=== PATIENT | male | born 1975 | race Caucasian/White ===

== ENCOUNTER 2018-08-08 01:49 | Emergency (ER) | payer OTHER ==
[~2018-08-08] VITALS: Ht 180.3 cm; Wt 106.6 kg
[~2018-08-08 01:49] MED LIST: WARF3 PO
[2018-08-08] MEDS ORDERED: CYCL10 PO (05:33)
== END 2018-08-08 05:32 | disposition home or self-care (01) ==
LOC: ER 01:49
DX: M25.512 Pain in left shoulder (principal); Z88.5 Allergy status to narcotic agent; Z79.01 Long term (current) use of anticoagulants; F17.210 Nicotine dependence, cigarettes, uncomplicated
CPT/HCPCS: 73030; 96372; 99283-25; J1885

== ENCOUNTER 2019-02-09 19:34 | Emergency (ER) | payer OTHER ==
[~2019-02-09] VITALS: Ht 177.8 cm; Wt 102.1 kg
[~2019-02-09 19:34] MED LIST changes: +CYCL10 PO
[2019-02-09] MEDS ORDERED: Cleocin HCl300 MG PO (21:01)
== END 2019-02-09 21:07 | disposition home or self-care (01) ==
LOC: ER 19:34
DX: K04.7 Periapical abscess without sinus (principal); F17.200 Nicotine dependence, unspecified, uncomplicated; Z95.2 Presence of prosthetic heart valve; Z88.5 Allergy status to narcotic agent; Z79.01 Long term (current) use of anticoagulants
CPT/HCPCS: 99283

== ENCOUNTER → 2019-02-11 | Outpatient (CLI) | payer OTHER ==
[~2019-02-11] MED LIST changes: +Cleocin HCl300 MG PO
[2019-02-11 09:01] LABS: BASOPHILS ABSOLUTE AUTO 0.06 K/mm3 (0.00-0.23); BASOPHILS PERCENT AUTO 0 % (0-2); EOSINOPHILS ABSOLUTE AUTO 0.21 K/mm3 (0.00-0.68); EOSINOPHILS PERCENT AUTO 1 % (0-6); Hemoglobin 15.2 g/dL (13.5-17.5); IMMATURE GRAN ABSOLUTE AUTO 0.05 K/mm3 (0.00-0.10); IMMATURE GRAN PERCENT AUTO 0 % (0-1); LYMPHOCYTES ABSOLUTE AUTO 1.52 K/mm3 (0.84-5.20); LYMPHOCYTES PERCENT AUTO 10 % (21-46); MONOCYTES ABSOLUTE AUTO 1.27 K/mm3 (0.16-1.47); MONOCYTES PERCENT AUTO 8 % (4-13); Mean Corpuscular HGB 28.6 pg (26.0-34.0); Mean Corpuscular Volume 87 fL (80-100); Mean Platelet Volume 9.3 fL (9.1-12.4); NEUTROPHILS PERCENT AUTO 79 % (41-73); Platelet Count 372 K/mm3 (150-400); RDW Standard Deviation 43.9 fL (35.1-46.3); Red Blood Cell Count 5.32 M/mm3 (4.30-5.90); White Blood Cell Count 15.11 K/mm3 (4.00-11.30)
[2019-02-11 09:38] LABS: Alanine Aminotransfer (ALT/SGP 41 U/L (12-78); Albumin, Blood 3.9 g/dL (3.4-5.0); Albumin/Globulin Ratio 0.9 (0.8-1.8); Alk Phos 76 U/L (50-136); Anion Gap 6 mmol/L (6-16); Aspartate Aminotrans (AST/SGOT 27 U/L (12-37); Bilirubin, Total 0.5 mg/dL (0.1-1.0); Blood Urea Nitrogen 10 mg/dL (8-24); CO2, Blood 26 mmol/L (21-32); Calcium, Blood 8.8 mg/dL (8.5-10.1); Chloride, Blood 109 mmol/L (98-108); Creatinine, Blood 0.91 mg/dL (0.60-1.20); Globulin, Blood 4.3 g/dL (2.2-4.0); Glomerular Filtration Rate >60 (60-); Glucose, Blood 90 mg/dL (70-99); Potassium, Blood 3.5 mmol/L (3.5-5.5); Sodium, Blood 141 mmol/L (136-145); Total Protein, Blood 8.2 g/dL (6.4-8.2)
[2019-02-11 09:40] LABS: International Normalized Ratio 2.42; Prothrombin Time Results 23.7 Sec (9.7-11.5)
== END | disposition home or self-care (01) ==
LOC: LAB SHORT 08:56 → LAB EV 08:56
PROVIDERS: Physician Assistant Medical
DX: Z79.01 Long term (current) use of anticoagulants (principal); Z51.81 Encounter for therapeutic drug level monitoring; K13.79 Other lesions of oral mucosa
CPT/HCPCS: 80053; 85025; 85610; 85730

== ENCOUNTER → 2019-05-15 | Outpatient (CLI) | payer OTHER ==
[2019-05-15 09:23] LABS: BASOPHILS ABSOLUTE AUTO 0.04 K/mm3 (0.00-0.23); BASOPHILS PERCENT AUTO 1 % (0-2); EOSINOPHILS ABSOLUTE AUTO 0.53 K/mm3 (0.00-0.68); EOSINOPHILS PERCENT AUTO 8 % (0-6); Hematocrit 44.6 % (37.0-53.0); Hemoglobin 14.7 g/dL (13.5-17.5); IMMATURE GRAN ABSOLUTE AUTO 0.03 K/mm3 (0.00-0.10); IMMATURE GRAN PERCENT AUTO 1 % (0-1); LYMPHOCYTES ABSOLUTE AUTO 0.85 K/mm3 (0.84-5.20); LYMPHOCYTES PERCENT AUTO 13 % (21-46); MONOCYTES ABSOLUTE AUTO 0.96 K/mm3 (0.16-1.47); MONOCYTES PERCENT AUTO 15 % (4-13); Mean Corpuscular HGB 28.3 pg (26.0-34.0); Mean Corpuscular Volume 86 fL (80-100); Mean Platelet Volume 9.2 fL (9.1-12.4); NEUTROPHILS ABSOLUTE AUTO 4.04 K/mm3 (1.96-9.15); NEUTROPHILS PERCENT AUTO 63 % (41-73); Platelet Count 241 K/mm3 (150-400); RDW Coefficient Variation 14.6 % (11.7-14.2); RDW Standard Deviation 46.2 fL (35.1-46.3); Red Blood Cell Count 5.19 M/mm3 (4.30-5.90); White Blood Cell Count 6.45 K/mm3 (4.00-11.30)
[2019-05-15 09:32] LABS: Alanine Aminotransfer (ALT/SGP 29 U/L (12-78); Albumin, Blood 3.5 g/dL (3.4-5.0); Albumin/Globulin Ratio 0.9 (0.8-1.8); Alk Phos 52 U/L (40-126); Anion Gap 10 mmol/L (6-16); Aspartate Aminotrans (AST/SGOT 24 U/L (12-37); Bilirubin, Total 0.2 mg/dL (0.1-1.0); Blood Urea Nitrogen 12 mg/dL (8-24); Bun/Creatinine Ratio 11.7 (12.0-20.0); CO2, Blood 25 mmol/L (21-32); Calcium, Blood 8.2 mg/dL (8.5-10.1); Chloride, Blood 106 mmol/L (98-108); Creatinine, Blood 1.03 mg/dL (0.60-1.20); Globulin, Blood 3.9 g/dL (2.2-4.0); Glomerular Filtration Rate >60 (60-); Glucose, Blood 90 mg/dL (70-99); Potassium, Blood 3.9 mmol/L (3.5-5.5); Sodium, Blood 141 mmol/L (136-145); Total Protein, Blood 7.4 g/dL (6.4-8.2)
[2019-05-15 10:17] LABS: International Normalized Ratio 1.68; Prothrombin Time Results 17.5 Sec (9.7-11.5)
== END ==
LOC: LAB EV 09:16 → LAB SHORT 09:16
PROVIDERS: Physician Assistant
DX: Z79.01 Long term (current) use of anticoagulants (principal); Z51.81 Encounter for therapeutic drug level monitoring; R50.9 Fever, unspecified
CPT/HCPCS: 80053; 85025; 85610; 85730

== ENCOUNTER 2019-07-06 14:50 | Inpatient (IN) | payer OTHER ==
[~2019-07-06] VITALS: Ht 177.8 cm; Wt 94.8 kg
[2019-07-06 15:37] LABS: BASOPHILS PERCENT AUTO 1 % (0-2); EOSINOPHILS ABSOLUTE AUTO 0.13 K/mm3 (0.00-0.68); EOSINOPHILS PERCENT AUTO 1 % (0-6); Hemoglobin 12.3 g/dL (13.5-17.5); IMMATURE GRAN ABSOLUTE AUTO 0.13 K/mm3 (0.00-0.10); IMMATURE GRAN PERCENT AUTO 1 % (0-1); LYMPHOCYTES ABSOLUTE AUTO 2.88 K/mm3 (0.84-5.20); LYMPHOCYTES PERCENT AUTO 15 % (21-46); MONOCYTES ABSOLUTE AUTO 1.17 K/mm3 (0.16-1.47); MONOCYTES PERCENT AUTO 6 % (4-13); Mean Corpuscular HGB 28.1 pg (26.0-34.0); Mean Corpuscular HGB Conc 31.5 g/dL (31.5-36.5); Mean Corpuscular Volume 89 fL (80-100); Mean Platelet Volume 9.2 fL (9.1-12.4); NEUTROPHILS ABSOLUTE AUTO 15.11 K/mm3 (1.96-9.15); NEUTROPHILS PERCENT AUTO 77 % (41-73); Platelet Count 381 K/mm3 (150-400); RDW Standard Deviation 45.5 fL (35.1-46.3); Red Blood Cell Count 4.37 M/mm3 (4.30-5.90); White Blood Cell Count 19.52 K/mm3 (4.00-11.30)
[2019-07-06 15:54] LABS: Alanine Aminotransfer (ALT/SGP 28 U/L (12-78); Albumin, Blood 3.5 g/dL (3.4-5.0); Albumin/Globulin Ratio 1.1 (0.8-1.8); Alk Phos 46 U/L (50-136); Anion Gap 8 mmol/L (6-16); Aspartate Aminotrans (AST/SGOT 16 U/L (12-37); Bilirubin, Total 0.6 mg/dL (0.1-1.0); Blood Urea Nitrogen 42 mg/dL (8-24); Bun/Creatinine Ratio 35.6 (12.0-20.0); CO2, Blood 24 mmol/L (21-32); Chloride, Blood 111 mmol/L (98-108); Creatinine, Blood 1.18 mg/dL (0.60-1.20); Globulin, Blood 3.3 g/dL (2.2-4.0); Glomerular Filtration Rate >60 (60-); Glucose, Blood 151 mg/dL (70-99); Potassium, Blood 4.3 mmol/L (3.5-5.5); Sodium, Blood 143 mmol/L (136-145); Total Protein, Blood 6.8 g/dL (6.4-8.2)
[2019-07-06 16:02] LABS: International Normalized Ratio 2.29; Prothrombin Time Results 23.4 Sec (9.7-11.5)
[2019-07-06 16:53] LABS: Hemoglobin 10.6 g/dL (13.5-17.5)
--- NOTE | 2019-07-06 18:21 | NUR ---
ICU SUMMARY Plan of care discussed with Dr Frias prior to pt arrival to unit. Provider states no transfusion of PRBCs at this time. Would like existing units on standby. Assumed care of pt upon arrival to ICU 11 at 1735. Report received from Vanessa ROSA. Pt arrived to unit accompanied by Vanessa ROSA. Pt A&O x 4. Denies lightheadedness, dizziness, or shortness of breath. Pt states he is overall feeling well, much better than he did on arrival to the hospital. Pt transfers from ED gurney to ICU bed with minimal assistance. Pt on room air. SpO2 90% or greater. SR per monitor, rate 80s-90s. BP stable FFP infusing. Denies s/sx of transfusion reaction. Pt reports his only home medication is coumadin, which he takes for mechanical aortic valve. States he smokes approx 1 pack of cigarettes per day, exposed to second-hand smoke. Pt states he drinks "like a shot a month" of alcohol. Pt denies drug use. Pt lives with his Germania. States their 21 year anniversary is tomorrow. Pt states he has been having nausea and vomiting. Reports "[place] almost black" stools. When asked if they were tarry in appearance, pt states "no". Pt states stool has been solid. Per report from emergency department, pt had 400 mL of bloody emesis. NS and protonix infusing per orders. Dr Martin in room at this time.
--- NOTE | 2019-07-06 18:35 | NUR ---
UPDATE Dr Martin states plan to scope patient tonight.
--- NOTE | 2019-07-06 19:24 | NUR ---
PATIENT RESTING IN BED. NO COMPLAINTS OF PAIN OR NAUSEA. ABLE TO SIT AT SIDE OF BED TO ATTEMPT TO URINATE VOIDING SMALL AMT OF BIANCA URINE. SCOPE CREW IN ROOM FOR UPPER GI WITH DOCTOR CACERES.
--- NOTE | 2019-07-06 20:04 | NUR ---
07/06/192003 Grant Ibrahim Bite Block PlacedPATIENT DETERMINED TO BE ASA APPROPRIATE FOR PROPOFOL SEDATION PRIOR TO START OF PROCEDURE BY .History, Chart, Medications and Allergies reviewed before start of procedure. PROCEDURE IN ICU 11 O2 VIA N/C INTACT THROUGHOUT SEDATION/PROCEDURE. MONITOR INTACT WITH CONTINUOUS PULSE OXIMETRY AND INTERMITTENT BP. NON REBREATHER USED.
--- NOTE | 2019-07-06 20:28 | NUR ---
UPPER ENDO COMPLETE. AWAKENS TO SLIGHT STIMULI, FALLING BACK TO SLEEP EASILY. 95% ON RA. OK FOR SIPS OF WATER AND ICE CHIPS ONLY DUE TO CLIP PLACEMENT, PER DOCTOR NICKI.
[2019-07-06 23:13] LABS: Hematocrit 25.6 % (37.0-53.0); Hemoglobin 8.3 g/dL (13.5-17.5)
[2019-07-07 04:57] LABS: Hematocrit 24.8 % (37.0-53.0); Hemoglobin 7.9 g/dL (13.5-17.5)
[2019-07-07 05:14] LABS: Anion Gap 4 mmol/L (6-16); Blood Urea Nitrogen 29 mg/dL (8-24); Bun/Creatinine Ratio 30.1 (12.0-20.0); CO2, Blood 27 mmol/L (21-32); Calcium, Blood 7.6 mg/dL (8.5-10.1); Chloride, Blood 117 mmol/L (98-108); Creatinine, Blood 0.96 mg/dL (0.60-1.20); Glomerular Filtration Rate >60 (60-); Glucose, Blood 83 mg/dL (70-99); Potassium, Blood 3.8 mmol/L (3.5-5.5); Sodium, Blood 148 mmol/L (136-145)
[2019-07-07 05:18] LABS: International Normalized Ratio 1.54; Prothrombin Time Results 16.1 Sec (9.7-11.5)
--- NOTE | 2019-07-07 05:53 | NUR ---
SUMMARY PATIENT SLEEPING OFF AND ON AFTER UPPER GI SCOPE. AWAKENS EASILY, STANDING TO USE URINAL. NO NAUSEA OR PAIN POST SCOPE. SINCERE SMALL AMT OF ICE CHIPS WELL. MONITORING H&H Q6HR ORDER TO TRANSFUSE IF HGB LESS THAN 7.0 FROM DOCTOR CACERES.
--- NOTE | 2019-07-07 09:21 | NUR ---
PT AWAKE AND UP TO CHAIR W SBA. PT DENIES C/O PAIN, NAUSEA. TOLERATING ICE CHIPS. PROTONIX GTT INFUSING. NO SIGNS OF ACTIVE BLEED. CLEAR LIQUID FLUIDS GIVEN; PT TOLERATED THIS WELL. RESTING IN BED NOW W NO COMPLAINTS.
[2019-07-07 11:06] LABS: Hematocrit 23.2 % (37.0-53.0); Hemoglobin 7.4 g/dL (13.5-17.5)
--- NOTE | 2019-07-07 11:25 | NUR ---
H&H STABLE, CLOSE TO PREVIOUS H&H. PT RESTING IN BED W/O COMPLAINTS.
--- NOTE | 2019-07-07 11:38 | NUR ---
DR MALONEY IN TO SEE PT. 1 UNIT PRBC'S TO BE GIVEN PER DR CACERES.
--- NOTE | 2019-07-07 12:28 | NUR ---
DR CACERES IN TO SEE PT. PT NPO FOR EGD AROUND 1600 W ANESTHESIA.
--- NOTE | 2019-07-07 15:08 | NUR ---
TRANSFUSION COMPLETE. VSS, LUNGS CLEAR, PT SLEEPING W/O COMPLAINTS.
--- NOTE | 2019-07-07 16:49 | NUR ---
07/07/19 1649 SERGIO KUNZ History, Chart, Medications and Allergies reviewed before start of procedure. MONITOR INTACT WITH CONTINUOUS PULSE OXIMETRY AND INTERMITTENT BP. 3-LEAD EKG REVIEWED WITH PHYSICIAN PRIOR TO START OF PROCEDURE.O2 VIA N/C INTACT THROUGHOUT SEDATION/PROCEDURE. MAC WITH DR. CANO.
--- NOTE | 2019-07-07 16:53 | NUR ---
EGD COMPLETED BY DR NICKI Robertson ANESTHESIA. PROCEDURE LESS THAN 5MIN. TEAR IMPROVED. PT TO RESUME CLEAR LIQUIDS TOLERATED. MAY RESTRAT ANTICOAG TX TOMORROW IF H&H REMAINS STABLE. CONT PROTONIX GTT PER DR CACERES.
[2019-07-07 17:07] LABS: Hematocrit 25.6 % (37.0-53.0); Hemoglobin 8.3 g/dL (13.5-17.5)
--- NOTE | 2019-07-07 18:00 | NUR ---
PT WIDE AWAKE. ATE 100% OF CLEAR LIQUID TRAY; TOLERATED WELL.
--- NOTE | 2019-07-07 19:30 | NUR ---
PATIENT RESTING QUIETLY WITH NO COMPLAINTS OF PAIN OR NAUSEA. REPOSITIONING SELF FOR COMFORT. PROTONIX DRIP CONTINUES.
[2019-07-07 22:54] LABS: Hematocrit 25.5 % (37.0-53.0); Hemoglobin 8.2 g/dL (13.5-17.5)
[2019-07-08 03:47] LABS: BASOPHILS ABSOLUTE AUTO 0.06 K/mm3 (0.00-0.23); BASOPHILS PERCENT AUTO 1 % (0-2); EOSINOPHILS ABSOLUTE AUTO 0.25 K/mm3 (0.00-0.68); EOSINOPHILS PERCENT AUTO 2 % (0-6); Hematocrit 26.1 % (37.0-53.0); Hemoglobin 8.4 g/dL (13.5-17.5); IMMATURE GRAN ABSOLUTE AUTO 0.06 K/mm3 (0.00-0.10); IMMATURE GRAN PERCENT AUTO 1 % (0-1); LYMPHOCYTES ABSOLUTE AUTO 2.49 K/mm3 (0.84-5.20); LYMPHOCYTES PERCENT AUTO 23 % (21-46); MONOCYTES PERCENT AUTO 6 % (4-13); Mean Corpuscular HGB 28.3 pg (26.0-34.0); Mean Corpuscular HGB Conc 32.2 g/dL (31.5-36.5); Mean Corpuscular Volume 88 fL (80-100); NEUTROPHILS ABSOLUTE AUTO 7.19 K/mm3 (1.96-9.15); NEUTROPHILS PERCENT AUTO 68 % (41-73); Platelet Count 261 K/mm3 (150-400); RDW Coefficient Variation 14.9 % (11.7-14.2); Red Blood Cell Count 2.97 M/mm3 (4.30-5.90); White Blood Cell Count 10.65 K/mm3 (4.00-11.30)
[2019-07-08 04:05] LABS: Anion Gap 4 mmol/L (6-16); Blood Urea Nitrogen 13 mg/dL (8-24); Bun/Creatinine Ratio 14.2 (12.0-20.0); CO2, Blood 26 mmol/L (21-32); Calcium, Blood 7.8 mg/dL (8.5-10.1); Chloride, Blood 113 mmol/L (98-108); Creatinine, Blood 0.92 mg/dL (0.60-1.20); Glomerular Filtration Rate >60 (60-); Glucose, Blood 80 mg/dL (70-99); Potassium, Blood 3.7 mmol/L (3.5-5.5); Sodium, Blood 143 mmol/L (136-145)
--- NOTE | 2019-07-08 06:09 | NUR ---
SUMMARY PATIENT SLEEPING OFF AND ON T/O NIGHT WITH NO COMPLAINTS, SINCERE CLEAR LIQUIDS WITHOUT DIFFICULTY. H&H REMAINING STABLE.
--- NOTE | 2019-07-08 09:21 | NUR ---
PT ASSESSED THIS AM AT 0730. PT SLEEPING RESTLFULLY, AROUSES TO VOICE. DENIES C/O PAIN, NAUSEA. PT TOLERATED LIQUID BREAKFAST. NO SIGNS OF BLEEDING. VSS. PT SBA TO SHOWER THIS AM. ORDERS TO ADVANCE DIET TO FULL LIQUID. PROTONIX GTT INFUSING. WILL INQUIRE ABOUT DC'ING IV FLUIDS PT TAKING PO WELL AND APPEARS A LITTLE PUFFY. PT POS 4L.
--- NOTE | 2019-07-08 10:36 | NUR ---
DR MALONEY IN TO SEE PT. LOVENOX AND COUMADIN TO BE STARTED VIA PHARM CONSULT. H&H ORDERED FOR NOON, IF STABLE PT CAN BE TRANSFERED TO MED STATUS W TELE.
[2019-07-08 11:40] LABS: Hematocrit 26.4 % (37.0-53.0); Hemoglobin 8.6 g/dL (13.5-17.5)
[2019-07-08 11:57] LABS: International Normalized Ratio 1.35; Prothrombin Time Results 14.2 Sec (9.7-11.5)
--- NOTE | 2019-07-08 12:31 | NUR ---
DR CACERES IN TO SEE PT. PT NOW PCU STATUS. PT TOLERATED FULL DIET WELL. PT RESTING IN BED W/O COMPLAINTS.
--- NOTE | 2019-07-08 22:29 | NUR ---
PATIENT RESTING QUIETLY, SINCERE FULL LIQUID DIET WITH NO C/O NAUSEA. PATIENT AGREES TO CALL IF HAVING ANY ABD PAIN OR NAUSEA. VSS. MONITOR CONTINUES TO SHOW SINUS RHYTHM. LOVENOX AND COUMADIN STARTED TODAY.
[2019-07-09 03:29] LABS: BASOPHILS ABSOLUTE AUTO 0.05 K/mm3 (0.00-0.23); BASOPHILS PERCENT AUTO 1 % (0-2); EOSINOPHILS PERCENT AUTO 4 % (0-6); Hemoglobin 8.6 g/dL (13.5-17.5); IMMATURE GRAN ABSOLUTE AUTO 0.05 K/mm3 (0.00-0.10); IMMATURE GRAN PERCENT AUTO 1 % (0-1); LYMPHOCYTES ABSOLUTE AUTO 2.48 K/mm3 (0.84-5.20); LYMPHOCYTES PERCENT AUTO 24 % (21-46); MONOCYTES ABSOLUTE AUTO 0.88 K/mm3 (0.16-1.47); MONOCYTES PERCENT AUTO 9 % (4-13); Mean Corpuscular HGB 28.6 pg (26.0-34.0); Mean Corpuscular HGB Conc 33.1 g/dL (31.5-36.5); Mean Corpuscular Volume 86 fL (80-100); Mean Platelet Volume 9.1 fL (9.1-12.4); NEUTROPHILS ABSOLUTE AUTO 6.35 K/mm3 (1.96-9.15); NEUTROPHILS PERCENT AUTO 62 % (41-73); Platelet Count 297 K/mm3 (150-400); RDW Coefficient Variation 14.3 % (11.7-14.2); RDW Standard Deviation 44.9 fL (35.1-46.3); Red Blood Cell Count 3.01 M/mm3 (4.30-5.90); White Blood Cell Count 10.21 K/mm3 (4.00-11.30)
[2019-07-09 03:42] LABS: International Normalized Ratio 1.27; Prothrombin Time Results 13.4 Sec (9.7-11.5)
[2019-07-09 03:46] LABS: Anion Gap 5 mmol/L (6-16); Blood Urea Nitrogen 9 mg/dL (8-24); CO2, Blood 27 mmol/L (21-32); Chloride, Blood 110 mmol/L (98-108); Glomerular Filtration Rate >60 (60-); Glucose, Blood 84 mg/dL (70-99); Potassium, Blood 3.5 mmol/L (3.5-5.5); Sodium, Blood 142 mmol/L (136-145)
--- NOTE | 2019-07-09 05:31 | NUR ---
SUMMARY PATIENT RESTING QUIETLY IN BED WITH NO COMPLAINTS T/O NIGHT. NO C/O NAUSEA OR ABD PAIN. REPOSITIONING SELF IN BED AND IN ROOM WITHOUT DIFFICULTY. H&H REMAINING STABLE.
--- NOTE | 2019-07-09 08:45 | NUR ---
LOVENOX EDUCATION This RN educated pt on process of administering lovenox injections and demonstrated injection with AM dose of medication. Pt verbalized understanding. States he thinks his will be able to administer these injections as she used to be a medical officer.
[2019-07-09 12:40] LABS: Hemoglobin 9.8 g/dL (13.5-17.5)
[2019-07-09] MEDS ORDERED: FERSU300 PO (14:41)
[2019-07-09] MEDS ORDERED: PANT40 PO (14:42)
[2019-07-09] MEDS ORDERED: ENOX120I SC (14:44)
--- NOTE | 2019-07-09 16:19 | NUR ---
DISCHARGE Pt discharged from unit at 1518. Pt escorted to front door via wheelchair accompanied by this RN. Medications faxed to [facility] pharmacy. Education given on lovenox injections by pharmacist. Pt verbalized understanding of injection process. Pt tolerated regular adult diet prior to discharge home. Pt picked up from hospital by friends.
== END 2019-07-09 15:15 | disposition home or self-care (01) | DRG 369 ==
LOC: ER 14:50 → ICUW 16:44 → PCU 07-08 18:22 → ICUW 07-08 18:23
PROVIDERS: Emergency Medicine; Family Medicine; Internal Medicine Gastroenterology; ADMIT Internal Medicine
PROC: 30233N1 Transfusion of Nonautologous Red Blood Cells into Peripheral Vein, Percutaneous Approach (ICD-10-PCS; 2019-07-06)
PROC: 0W3P8ZZ Control Bleeding in Gastrointestinal Tract, Via Natural or Artificial Opening Endoscopic (ICD-10-PCS; 2019-07-06 19:45)
PROC: 3E0G8GC Introduction of Other Therapeutic Substance into Upper GI, Via Natural or Artificial Opening Endoscopic (ICD-10-PCS; principal; 2019-07-07 16:15)
DX: K22.6 Gastro-esophageal laceration-hemorrhage syndrome (principal); D62 Acute posthemorrhagic anemia; Q24.9 Congenital malformation of heart, unspecified; Z79.01 Long term (current) use of anticoagulants; Z95.2 Presence of prosthetic heart valve; F17.210 Nicotine dependence, cigarettes, uncomplicated; I95.9 Hypotension, unspecified
CPT/HCPCS: 36415; 36430; 80048; 80053; 85014; 85018; 85025; 85610; 85730; 86850; 86900; 86901; 86923; 93005; 93010; 96361; 96374; 96375; 99285-25; C9113; J0171; J1650; J2001; J2250; J2405; J2704; J2765; J7030; J7050; J7120; P9016; P9059

== ENCOUNTER → 2019-12-31 | Outpatient (CLI) | payer OTHER ==
[~2019-12-31] MED LIST changes: +ENOX120I SC; +FERSU300 PO; +PANT40 PO
== END | disposition home or self-care (01) ==
LOC: LAB SHORT 15:52 → PLD 15:52
DX: L91.8 Other hypertrophic disorders of the skin (principal)
CPT/HCPCS: 88304

== ENCOUNTER 2020-04-17 13:53 | Emergency (ER) | payer OTHER ==
[~2020-04-17] VITALS: Ht 180.3 cm; Wt 106.1 kg
[2020-04-17 15:01] LABS: BASOPHILS ABSOLUTE AUTO 0.08 K/mm3 (0.00-0.23); BASOPHILS PERCENT AUTO 1 % (0-2); EOSINOPHILS ABSOLUTE AUTO 0.31 K/mm3 (0.00-0.68); EOSINOPHILS PERCENT AUTO 3 % (0-6); Hemoglobin 13.3 g/dL (13.5-17.5); IMMATURE GRAN ABSOLUTE AUTO 0.05 K/mm3 (0.00-0.10); IMMATURE GRAN PERCENT AUTO 0 % (0-1); LYMPHOCYTES ABSOLUTE AUTO 1.83 K/mm3 (0.84-5.20); LYMPHOCYTES PERCENT AUTO 15 % (21-46); MONOCYTES PERCENT AUTO 8 % (4-13); Mean Corpuscular HGB 23.7 pg (26.0-34.0); Mean Corpuscular HGB Conc 30.9 g/dL (31.5-36.5); Mean Corpuscular Volume 77 fL (80-100); Mean Platelet Volume 8.7 fL (9.1-12.4); NEUTROPHILS ABSOLUTE AUTO 9.28 K/mm3 (1.96-9.15); NEUTROPHILS PERCENT AUTO 74 % (41-73); Platelet Count 361 K/mm3 (150-400); RDW Coefficient Variation 18.2 % (11.7-14.2); RDW Standard Deviation 49.5 fL (35.1-46.3); Red Blood Cell Count 5.62 M/mm3 (4.30-5.90); White Blood Cell Count 12.55 K/mm3 (4.00-11.30)
[2020-04-17 15:19] LABS: Alanine Aminotransfer (ALT/SGP 30 U/L (12-78); Albumin, Blood 3.9 g/dL (3.4-5.0); Alk Phos 81 U/L (50-136); Anion Gap 3 mmol/L (6-16); Aspartate Aminotrans (AST/SGOT 43 U/L (12-37); Bilirubin, Total 0.4 mg/dL (0.1-1.0); Blood Urea Nitrogen 8 mg/dL (8-24); Bun/Creatinine Ratio 7.7 (12.0-20.0); CO2, Blood 28 mmol/L (21-32); Calcium, Blood 8.7 mg/dL (8.5-10.1); Chloride, Blood 110 mmol/L (98-108); Creatinine, Blood 1.04 mg/dL (0.60-1.20); Globulin, Blood 4.1 g/dL (2.2-4.0); Glomerular Filtration Rate >60 (60-); Glucose, Blood 85 mg/dL (70-99); Potassium, Blood 4.8 mmol/L (3.5-5.5); Sodium, Blood 141 mmol/L (136-145)
[2020-04-17 16:19] LABS: International Normalized Ratio 2.4; Prothrombin Time Results 24.4 Sec (9.7-11.5)
[2020-04-17] MEDS ORDERED: Norco 5-325 Ta1 EACH PO (17:55)
[2020-04-17] MEDS ORDERED: ONDA4ODT MM (17:55)
== END 2020-04-17 18:11 | disposition home or self-care (01) ==
LOC: ER 13:53
PROVIDERS: Emergency Medicine; Physician Assistant
DX: K43.9 Ventral hernia without obstruction or gangrene (principal); F17.210 Nicotine dependence, cigarettes, uncomplicated
CPT/HCPCS: 36415; 74177; 80053; 83690; 84484; 85025; 85610; 93005; 93010; 96374-59; 96375; 99284-25; J1170; J1885; J2405; J7030; Q9967

== ENCOUNTER 2021-10-05 21:04 | Emergency (ER) | payer OTHER ==
[~2021-10-05] VITALS: Ht 180.3 cm; Wt 112.5 kg
[~2021-10-05 21:04] MED LIST changes: +Norco 5-325 Ta1 EACH PO; +ONDA4ODT MM
[2021-10-05 22:07] LABS: Influenza A, PCR NEGATIVE (NEGATIVE); Influenza B, PCR NEGATIVE (NEGATIVE); Resp Syncytial Virus, PCR NEGATIVE (NEGATIVE)
[2021-10-05] MEDS ORDERED: Coumadin2 MG PO (22:09)
[2021-10-05] MEDS ORDERED: WARF4 PO (22:10)
[2021-10-05 22:37] LABS: SARS-Cov-2 (COVID-19) PCR, MMC POSITIVE (NEGATIVE)
[2021-10-05 23:15] LABS: Calcium, Ionized (POC) 1.19 mmol/L (1.10-1.46); Chloride (POC) 105 mmol/L (98-108); Creatinine (POC) 1.1 mg/dL (0.8-1.3); Glucose (ISTAT POC) 88 mg/dL (70-99); Hemoglobin (POC) 13.9 g/dL (13.5-17.5); Potassium (POC) 3.5 mmol/L (3.5-5.5); Sodium (POC) 140 mmol/L (135-148); Total CO2 (POC) 23 mmol/L (21-32)
== END 2021-10-06 01:20 | disposition home or self-care (01) ==
LOC: ER 21:04
PROVIDERS: Emergency Medicine; Physician Assistant
DX: U07.1 COVID-19 (principal); F17.210 Nicotine dependence, cigarettes, uncomplicated; Z88.5 Allergy status to narcotic agent; Z79.01 Long term (current) use of anticoagulants
CPT/HCPCS: 0241U; 36415; 80047; 85014; 99284-25; J7030; M0222

== ENCOUNTER 2021-12-16 21:50 | Inpatient (IN) | payer OTHER ==
[~2021-12-16] VITALS: Ht 180.3 cm; Wt 105.6 kg
[~2021-12-16 21:50] MED LIST changes: +Coumadin2 MG PO; +TRAM50 PO; +WARF4 PO
[2021-12-16 23:47] LABS: Hematocrit 46.7 % (37.0-53.0); Hemoglobin 15.6 g/dL (13.5-17.5); Mean Corpuscular HGB 28.1 pg (26.0-34.0); Mean Corpuscular HGB Conc 33.4 g/dL (31.5-36.5); Mean Corpuscular Volume 84 fL (80-100); Mean Platelet Volume 8.8 fL (9.1-12.4); Platelet Count 391 K/mm3 (150-400); RDW Coefficient Variation 14.8 % (11.7-14.2); RDW Standard Deviation 45.1 fL (35.1-46.3); Red Blood Cell Count 5.56 M/mm3 (4.30-5.90); White Blood Cell Count 31.44 K/mm3 (4.00-11.30)
[2021-12-17 00:07] LABS: Albumin, Blood 3.8 g/dL (3.4-5.0); Albumin/Globulin Ratio 0.9 (0.8-1.8); Bun/Creatinine Ratio 12.2 (12.0-20.0); Creatinine, Blood 1.23 mg/dL (0.60-1.20); Globulin, Blood 4.2 g/dL (2.2-4.0); Potassium, Blood 4.3 mmol/L (3.5-5.5)
[2021-12-17 00:18] LABS: BAND PERCENT MAN 9 % (0-8); BASOPHILS PERCENT MAN 0 % (0-2); EOSINOPHILS PERCENT MAN 0 % (0-6); LYMPHOCYTES ABSOLUTE MAN 1.88 K/mm3 (0.84-5.20); LYMPHOCYTES PERCENT MAN 6 % (21-46); MONOCYTES ABSOLUTE MAN 1.25 K/mm3 (0.16-1.47); MONOCYTES PERCENT MAN 4 % (4-13); NEUTROPHILS ABSOLUTE MAN 28.29 K/mm3 (1.96-9.15); SEG NEUTROPHILS PERCENT MAN 81 % (41-73); TOTAL CELLS COUNTED 100
[2021-12-17 04:58] LABS: Prothrombin Time Results 40.2 Sec (9.7-11.5)
[2021-12-17 05:05] LABS: International Normalized Ratio 4.21
[2021-12-17 06:52] LABS: BASOPHILS ABSOLUTE AUTO 0.08 K/mm3 (0.00-0.23); BASOPHILS PERCENT AUTO 0 % (0-2); EOSINOPHILS PERCENT AUTO 0 % (0-6); Hematocrit 42.2 % (37.0-53.0); Hemoglobin 14.2 g/dL (13.5-17.5); IMMATURE GRAN ABSOLUTE AUTO 0.25 K/mm3 (0.00-0.10); IMMATURE GRAN PERCENT AUTO 1 % (0-1); LYMPHOCYTES ABSOLUTE AUTO 1.33 K/mm3 (0.84-5.20); LYMPHOCYTES PERCENT AUTO 4 % (21-46); MONOCYTES ABSOLUTE AUTO 2.15 K/mm3 (0.16-1.47); MONOCYTES PERCENT AUTO 7 % (4-13); Mean Corpuscular HGB 28.3 pg (26.0-34.0); Mean Corpuscular HGB Conc 33.6 g/dL (31.5-36.5); Mean Corpuscular Volume 84 fL (80-100); Mean Platelet Volume 8.8 fL (9.1-12.4); NEUTROPHILS ABSOLUTE AUTO 28.66 K/mm3 (1.96-9.15); NEUTROPHILS PERCENT AUTO 88 % (41-73); Platelet Count 327 K/mm3 (150-400); RDW Coefficient Variation 15.1 % (11.7-14.2); RDW Standard Deviation 46.1 fL (35.1-46.3); Red Blood Cell Count 5.01 M/mm3 (4.30-5.90); White Blood Cell Count 32.47 K/mm3 (4.00-11.30)
[2021-12-17 07:05] LABS: International Normalized Ratio 3.98; Prothrombin Time Results 38.2 Sec (9.7-11.5)
[2021-12-17 07:13] LABS: Albumin, Blood 3.3 g/dL (3.4-5.0); Albumin/Globulin Ratio 0.8 (0.8-1.8); Bilirubin, Total 1.3 mg/dL (0.1-1.0); Calcium, Blood 8.2 mg/dL (8.5-10.1); Creatinine, Blood 1.27 mg/dL (0.60-1.20); Globulin, Blood 3.9 g/dL (2.2-4.0); Potassium, Blood 4.1 mmol/L (3.5-5.5); Total Protein, Blood 7.2 g/dL (6.4-8.2)
--- NOTE | 2021-12-17 18:22 | NUR ---
SHIFT SUMMARY TO RADIOLOGY FOR PER CHRISTOPHE DRAIN PLACEMENT TODAY. DRAIN IS IN PLACE, DRAINING SCANT DRAINAGE. VSS. A/O X4. PT TOLERATING FOOD AND DRINK WELL. NO NVD NOTED. USING URINAL WITHOUT DIFFICULTY. AWAITING PHARMACY CONSULT TO START HEPARIN PT WITH MECHANICAL HEART VALVE, PT IS UPDATED THAT HEPARIN WILL BE STARTED TONIGHT. PT STS PAIN IS WELL CONTROLLED FOR HIM SINCE DRAIN WAS PLACED.
[2021-12-17 18:23] LABS: Anti-Xa UFH, PHA Monitoring <0.10 IU/mL; International Normalized Ratio 1.69
--- NOTE | 2021-12-17 18:29 | NUR ---
AFTER ATTEMPTING TO EAT PT REPORTS "A PRESSURE PAIN" THAT HE STS IS A 6/10, HE IS OFFERED PAIN MEDICATION, PT ASKS WHAT HE WOULD RECIEVE HE IS EDUCATED THAT HE WOULD RECIEVE FENTANYL, PT STS "I DON'T LIKE THAT I WILL WAIT"
[2021-12-17 18:31] LABS: Prothrombin Time Results 17.1 Sec (9.7-11.5)
[2021-12-18 01:37] LABS: Anti-Xa UFH, PHA Monitoring <0.10 IU/mL; International Normalized Ratio 1.44; Prothrombin Time Results 14.8 Sec (9.7-11.5)
--- NOTE | 2021-12-18 05:53 | NUR ---
END OF SHIFT SUMMARY PT STABLE OVERNIGHT NO ACUTE CHANGES. VS STABLE. PT ALERT AND ORIENTED. GOT HIM SWITCHED TO PERCOCET FOR PAIN MANAGEMENT AND PT REPORTING THAT THIS IS WORKING WELL FOR HIM HE WAS ABLE TO GET SOME SLEEP THROUGH THE NIGHT. PT HEPARIN GTT AT 14 UNITS PER PHARMACY, PROTONIX GTT @ 10 AND NS @ 100. WILL GIVE BEDSIDE REPORT TO ONCOMING RN.
--- NOTE | 2021-12-18 07:27 | NUR ---
ASSUMED CARE: PT RESTING QUIETLY AT THIS TIME. NSR IN THE 80S ON TELE. PROTONIX GTT AND HEPARIN GTTS RUNNING. HEPARIN DOSE VERIFIED WITH EMAR. NO ACUTE NEEDS OR CONCERNS AT THIS TIME.
[2021-12-18 07:58] LABS: BASOPHILS ABSOLUTE AUTO 0.04 K/mm3 (0.00-0.23); BASOPHILS PERCENT AUTO 0 % (0-2); EOSINOPHILS ABSOLUTE AUTO 0.07 K/mm3 (0.00-0.68); EOSINOPHILS PERCENT AUTO 0 % (0-6); Hematocrit 42.1 % (37.0-53.0); Hemoglobin 13.4 g/dL (13.5-17.5); IMMATURE GRAN ABSOLUTE AUTO 0.12 K/mm3 (0.00-0.10); IMMATURE GRAN PERCENT AUTO 1 % (0-1); LYMPHOCYTES ABSOLUTE AUTO 1.05 K/mm3 (0.84-5.20); LYMPHOCYTES PERCENT AUTO 5 % (21-46); MONOCYTES ABSOLUTE AUTO 1.48 K/mm3 (0.16-1.47); MONOCYTES PERCENT AUTO 7 % (4-13); Mean Corpuscular HGB 27.8 pg (26.0-34.0); Mean Corpuscular HGB Conc 31.8 g/dL (31.5-36.5); Mean Corpuscular Volume 87 fL (80-100); Mean Platelet Volume 8.7 fL (9.1-12.4); NEUTROPHILS ABSOLUTE AUTO 18.41 K/mm3 (1.96-9.15); NEUTROPHILS PERCENT AUTO 87 % (41-73); Platelet Count 290 K/mm3 (150-400); RDW Coefficient Variation 15.2 % (11.7-14.2); RDW Standard Deviation 49.1 fL (35.1-46.3); Red Blood Cell Count 4.82 M/mm3 (4.30-5.90); White Blood Cell Count 21.17 K/mm3 (4.00-11.30)
[2021-12-18 08:20] LABS: Albumin, Blood 3.1 g/dL (3.4-5.0); Albumin/Globulin Ratio 0.7 (0.8-1.8); Bilirubin, Total 1.2 mg/dL (0.1-1.0); Bun/Creatinine Ratio 11.8 (12.0-20.0); Calcium, Blood 9.1 mg/dL (8.5-10.1); Creatinine, Blood 1.19 mg/dL (0.60-1.20); Globulin, Blood 4.3 g/dL (2.2-4.0); Potassium, Blood 3.4 mmol/L (3.5-5.5); Total Protein, Blood 7.4 g/dL (6.4-8.2)
--- NOTE | 2021-12-18 18:06 | NUR ---
SHIFT SUMMARY: PT RESTING QUIETLY AT THIS TIME. UP WITH 1 ASSIST TODAY TO RESTROOM. HEPARIN GTT CONTINUES AND ADJUSTED BY PHARMACY. PO COUMADIN GIVEN THIS PT. CHOLECYSTOSTOMY DRAIN IN PLACE DRAINING YELLOW/TABATHA COLORED, THICK DRAINAGE. MEDICATED FOR PAIN X1. NO ACUTE NEEDS OR CONCERNS AT THIS TIME.
[2021-12-18 21:32] LABS: Anti-Xa UFH, PHA Monitoring 0.15 IU/mL
--- NOTE | 2021-12-18 22:35 | NUR ---
DR. MOISE NOTIFIED OF PO TEMPERATURE BEING 102.2. RECEIVED ORDER FOR PT TYLENOL.
--- NOTE | 2021-12-19 00:39 | NUR ---
UPDATE PT'S ADMISSION ASSESSMENT WAS NOT COMPLETE. PT HAS BEEN ADMITTED FOR 2 DAYS. [employer] NOTIFIED AND I WAS INSTRUCTED TO COMPLETE ADMISSION ASSESSMENT
[2021-12-19 04:16] LABS: BASOPHILS ABSOLUTE AUTO 0.06 K/mm3 (0.00-0.23); BASOPHILS PERCENT AUTO 0 % (0-2); EOSINOPHILS ABSOLUTE AUTO 0.15 K/mm3 (0.00-0.68); EOSINOPHILS PERCENT AUTO 1 % (0-6); Hemoglobin 10.8 g/dL (13.5-17.5); IMMATURE GRAN ABSOLUTE AUTO 0.13 K/mm3 (0.00-0.10); IMMATURE GRAN PERCENT AUTO 1 % (0-1); LYMPHOCYTES ABSOLUTE AUTO 1.43 K/mm3 (0.84-5.20); LYMPHOCYTES PERCENT AUTO 8 % (21-46); MONOCYTES ABSOLUTE AUTO 1.52 K/mm3 (0.16-1.47); MONOCYTES PERCENT AUTO 9 % (4-13); Mean Corpuscular HGB 27.8 pg (26.0-34.0); Mean Corpuscular HGB Conc 32.7 g/dL (31.5-36.5); Mean Corpuscular Volume 85 fL (80-100); Mean Platelet Volume 9.1 fL (9.1-12.4); NEUTROPHILS ABSOLUTE AUTO 13.68 K/mm3 (1.96-9.15); NEUTROPHILS PERCENT AUTO 81 % (41-73); Platelet Count 248 K/mm3 (150-400); RDW Coefficient Variation 14.9 % (11.7-14.2); RDW Standard Deviation 46.2 fL (35.1-46.3); Red Blood Cell Count 3.88 M/mm3 (4.30-5.90); White Blood Cell Count 16.97 K/mm3 (4.00-11.30)
[2021-12-19 04:30] LABS: Anti-Xa UFH, PHA Monitoring 0.18 IU/mL; International Normalized Ratio 1.26
[2021-12-19 04:44] LABS: Albumin, Blood 2.3 g/dL (3.4-5.0); Albumin/Globulin Ratio 0.6 (0.8-1.8); Bilirubin, Total 0.6 mg/dL (0.1-1.0); Calcium, Blood 8.4 mg/dL (8.5-10.1); Globulin, Blood 3.8 g/dL (2.2-4.0); Potassium, Blood 3.5 mmol/L (3.5-5.5); Total Protein, Blood 6.1 g/dL (6.4-8.2)
--- NOTE | 2021-12-19 05:15 | NUR ---
SHIFT SUMMARY PT IS A/Ox4 AND FOLLOWS DIRECTIONS GIVEN BY STAFF. PT RAN A FEVER DURING THE MIDDLE OF MY SHIFT WITH AND ORAL TEMP >102F. NOTIFIED AND TYLENOL WELL USE OF ICE PACKS/COOLING BLANKET WAS USED TO COOL PT'S TEMP. PT'S HEPARIN HAS BEEN TITRATED SEVERAL TIMES T/O THE SHIFT WITH 23U/KG/HR, 87KG, 40ML/HR AT THE TIME OF THIS NOTE. CHOLECYSTOSTOMY PATENT AND DRAINING DARK BROWN COLORED BILE. PT WAS PLACED ON 4L NC DURING THE NIGHT DUE TO THE OT'S O2 STAT HOLDING AROUND 88% ON RA. O2 TITRATED DOWN OVER THE COURSE OF THIS SHIFT. BP's ARE SOFT, BUT MAP HAS BEEN HELD >65 T/O THE SHIFT. ISAI YOUNG
--- NOTE | 2021-12-19 10:22 | NUR ---
AM NOTE: PATIENT ALERT AND ORIENTED X4. NEURO WNL. ON ROOM AIR THIS AM SATING 95% AND ABOVE, LUNGS SOUNDING CLEAR. DENIES COUGH/SOB. TELE SHOWING SINUS RHYTHM WITH HR 80'S. BP STABLE. DENIES CHEST PAIN/PRESSURE. ABDOMINAL PAIN INTERMIT, DENIES PAIN THIS AM. DENIES NAUSEA. CHRISTOPHE TUBE DRAINING BROWN CLEAR LIQUID. DR. LEMA IN THIS AM TO ASSESS. NO NEW ORDERS. HEPARIN, PROTONIX, AND NS INFUSING THIS AM. TEMP WNL. TOLERATING CLEAR LIQUID DIET, WILL ADVANCE TOLERATED. USING URINAL TO VOID, DARK URINE. DENIES NEEDS AT THIS TIME. CALL LIGHT IN REACH. WILL CONTINUE TO MONITOR.
--- NOTE | 2021-12-19 10:46 | NUR ---
UPDATE: PATIENT STARTING TO FEEL COLD AND SWEATY. ORAL TEMP SHOWING 99.1. PRN TYLENOL AND FAN GIVEN. DR. MITCHELL BY AND UPDATED ON TEMP. NEW ORDERS TO DC PROTONIX DRIP AND ORDER PO 40MG PROTONIX DAILY STARTING NOW. ORDERS IN PLACE. WILL CONTINUE TO MONITOR.
--- NOTE | 2021-12-19 19:25 | NUR ---
SHIFT SUMMARY: NO ACUTE CHANGES THROUGHOUT SHIFT. PATIENT DENIES PAIN. UP TO BATHROOM WITH ONE PERSON ASSIST. ABLE TO ADVANCE DIET TO FULL LIQUID. RUQ DRAIN REMAINS WNL. 70ML OUTPUT THIS SHIFT. SMALL BLISTER NOTED TO RIGHT LATERAL SIDE OF DRESSING. REMAINS ON ROOM AIR. TMAX THIS SHIFT 99.1. HR AND BP WNL. TELE CONTINUES TO SHOW SINUS RHYTHM. FAMILY AT BEDSIDE. CALL LIGHT IN REACH. HEPARIN CONTINUES TO INFUSE PER EMAR. REPORTED OFF TO ONCOMING RN.
--- NOTE | 2021-12-19 22:54 | NUR ---
CARE ASSUMPTION: PATIENT IN BED, ORAL TEMP 99.6, VS WNL ON RA, DENIES PAIN OR OTHER DISCOMFORT AT THIS TIME. HEPARIN RUNNING PER EMAR - TITRATED FROM 24U TO 25U/KG/HR. ONE PERSON ASSIST TO BATHROOM TO HELP MANAGE LINES. DRAIN PATENT DRAINING MUCUSY, MAROON DRAINAGE. BED LOW WITH CALL IGHT IN REACH. CALLS APPROPRIATELY.
[2021-12-20 02:27] LABS: BASOPHILS ABSOLUTE AUTO 0.05 K/mm3 (0.00-0.23); BASOPHILS PERCENT AUTO 0 % (0-2); EOSINOPHILS ABSOLUTE AUTO 0.22 K/mm3 (0.00-0.68); EOSINOPHILS PERCENT AUTO 2 % (0-6); Hematocrit 32.4 % (37.0-53.0); IMMATURE GRAN ABSOLUTE AUTO 0.18 K/mm3 (0.00-0.10); IMMATURE GRAN PERCENT AUTO 1 % (0-1); LYMPHOCYTES ABSOLUTE AUTO 1.17 K/mm3 (0.84-5.20); LYMPHOCYTES PERCENT AUTO 8 % (21-46); MONOCYTES PERCENT AUTO 10 % (4-13); Mean Corpuscular HGB 28.2 pg (26.0-34.0); Mean Corpuscular Volume 83 fL (80-100); Mean Platelet Volume 9.2 fL (9.1-12.4); NEUTROPHILS ABSOLUTE AUTO 11.76 K/mm3 (1.96-9.15); NEUTROPHILS PERCENT AUTO 79 % (41-73); Platelet Count 299 K/mm3 (150-400); RDW Coefficient Variation 14.6 % (11.7-14.2); RDW Standard Deviation 44.3 fL (35.1-46.3); White Blood Cell Count 14.88 K/mm3 (4.00-11.30)
[2021-12-20 02:28] LABS: Albumin, Blood 2.2 g/dL (3.4-5.0); Albumin/Globulin Ratio 0.6 (0.8-1.8); Bilirubin, Total 0.4 mg/dL (0.1-1.0); Bun/Creatinine Ratio 8.5 (12.0-20.0); Calcium, Blood 8.2 mg/dL (8.5-10.1); Creatinine, Blood 0.94 mg/dL (0.60-1.20); Globulin, Blood 3.8 g/dL (2.2-4.0); Magnesium, Blood 1.7 mg/dL (1.6-2.4); Phosphorus, Blood 1.8 mg/dL (2.5-4.9); Potassium, Blood 3.3 mmol/L (3.5-5.5)
--- NOTE | 2021-12-20 03:40 | NUR ---
LOW POTASSIUM: DR. ELAINE ON UNIT AND UPDATED ON PATIENT'S POTASSIUM OF 3.3. NEW ORDERS RECEIVED.
--- NOTE | 2021-12-20 04:13 | NUR ---
UPDATE: HEPARIN GTT INCREASED PER EMAR AT THIS TIME.
--- NOTE | 2021-12-20 06:02 | NUR ---
SHIFT SUMMARY: PATIENT VS WNL, TMAX 99.6. DENIES CHEST PAIN/SOB/N/V. URICEL DRAIN HAD 30 ML MUCUSY, MAROON OUTPUT THIS SHIFT. MEDICATED PER EMAR. MELATONIN AIDED IN RESTFUL SLEEP. NO ADVERSE EVENTS THIS SHIFT. PLEASANT AND COOPERATIVE WITH CARE. USES CALL LIGHT APPROPRIATELY. BED LOW WITH CALL LIGHT IN REACH. WILL CONTINUE TO MONITOR AND REPORT TO ONCOMING RN.
[2021-12-20 10:30] LABS: BASOPHILS ABSOLUTE AUTO 0.05 K/mm3 (0.00-0.23); BASOPHILS PERCENT AUTO 0 % (0-2); EOSINOPHILS ABSOLUTE AUTO 0.12 K/mm3 (0.00-0.68); EOSINOPHILS PERCENT AUTO 1 % (0-6); Hematocrit 36.8 % (37.0-53.0); Hemoglobin 12.4 g/dL (13.5-17.5); IMMATURE GRAN ABSOLUTE AUTO 0.19 K/mm3 (0.00-0.10); IMMATURE GRAN PERCENT AUTO 1 % (0-1); LYMPHOCYTES ABSOLUTE AUTO 0.78 K/mm3 (0.84-5.20); LYMPHOCYTES PERCENT AUTO 5 % (21-46); MONOCYTES ABSOLUTE AUTO 1.23 K/mm3 (0.16-1.47); MONOCYTES PERCENT AUTO 8 % (4-13); Mean Corpuscular HGB 28.2 pg (26.0-34.0); Mean Corpuscular HGB Conc 33.7 g/dL (31.5-36.5); Mean Corpuscular Volume 84 fL (80-100); NEUTROPHILS ABSOLUTE AUTO 12.35 K/mm3 (1.96-9.15); NEUTROPHILS PERCENT AUTO 84 % (41-73); Platelet Count 348 K/mm3 (150-400); RDW Coefficient Variation 14.6 % (11.7-14.2); Red Blood Cell Count 4.39 M/mm3 (4.30-5.90); White Blood Cell Count 14.72 K/mm3 (4.00-11.30)
[2021-12-20 10:34] LABS: Albumin, Blood 2.4 g/dL (3.4-5.0); Anion Gap 7 mmol/L (6-16); Blood Urea Nitrogen 8 mg/dL (8-24); Bun/Creatinine Ratio 8.6 (12.0-20.0); CO2, Blood 25 mmol/L (21-32); Calcium, Blood 8.7 mg/dL (8.5-10.1); Chloride, Blood 108 mmol/L (98-108); Creatinine, Blood 0.93 mg/dL (0.60-1.20); Glomerular Filtration Rate 103 (60-); Glucose, Blood 124 mg/dL (70-99); Phosphorus, Blood 2.5 mg/dL (2.5-4.9); Potassium, Blood 3.5 mmol/L (3.5-5.5); Sodium, Blood 140 mmol/L (136-145)
[2021-12-20 10:46] LABS: International Normalized Ratio 1.56; Prothrombin Time Results 15.9 Sec (9.7-11.5)
--- NOTE | 2021-12-20 17:10 | NUR ---
Shift Summary Pt has been resting in bed throughout the day. Pt has independently repositioned self for comfort frequently. Pt was up to the restroom this morning by stand-by assist. Pt has denied c/o pain or discomfort. This morning during a physician assessment, the pt's abdomen was palpated which triggered an episode of emesis, approximately 500 mL's of emesis was collected. Pt denied any c/o nausea until the evening, medications were administered per MAY. All vital signs stable, Pt has remained afebrile.
[2021-12-21 05:12] LABS: Anti-Xa UFH, PHA Monitoring 0.38 IU/mL; International Normalized Ratio 2.02; Prothrombin Time Results 20.3 Sec (9.7-11.5)
--- NOTE | 2021-12-21 06:13 | NUR ---
PT SLEEPING WELL OVERNIGHT. PT WITH MILD PAIN ON L ABD, PRN MEDS EFFECTIVE. SEE MAR. DRAIN INTACT AND DRAINING TO GRAVITY. DRAINING SERIOSANG FLUID. NO PAIN THIS AM. PT WITH SOME NAUSEA EARLIER THIS AM PRN ZOFRAN GIVEN AND EFFECTIVE. VITALS STABLE.
--- NOTE | 2021-12-21 16:58 | NUR ---
Shift Summary Pt has been resting in room throughout the day, they have gotten up to the restroom independently on several occasions. Pt had a mild episode of nausea in the morning that was treated per MAY. Pt tried pudding in the afternoon per Provider request and tolerated that well, diet was advanced to regular. Pt has denied complaints of abdominal pain/discomfort. Vital signs stable, no acute changes in condition.
--- NOTE | 2021-12-22 04:59 | NUR ---
SHIFT SUMMARY: PT REMAINS ALERT AND ORIENTED X4, HR AND BP STABLE, AFEBRILE, SATING >95% ON RA. PT UP IND TO AND FROM BATHROOM THIS SHIFT, ABLE TO REPOS IND IN BED. NO COMPLAINTS OF N/V THIS SHIFT. URISEAL HAD APRROX 200 ML OF OUTPUT. NO BM THIS SHIFT. PT CURRENTLY SITTING UP IN BED WATCHING TV. CALL LIGHT IN REACH, WILL RERPORT TO ONCOMING RN.
[2021-12-22 05:02] LABS: BASOPHILS ABSOLUTE AUTO 0.08 K/mm3 (0.00-0.23); BASOPHILS PERCENT AUTO 1 % (0-2); EOSINOPHILS ABSOLUTE AUTO 0.26 K/mm3 (0.00-0.68); EOSINOPHILS PERCENT AUTO 2 % (0-6); Hematocrit 36.3 % (37.0-53.0); Hemoglobin 11.8 g/dL (13.5-17.5); IMMATURE GRAN ABSOLUTE AUTO 0.56 K/mm3 (0.00-0.10); IMMATURE GRAN PERCENT AUTO 4 % (0-1); LYMPHOCYTES ABSOLUTE AUTO 1.52 K/mm3 (0.84-5.20); LYMPHOCYTES PERCENT AUTO 10 % (21-46); MONOCYTES ABSOLUTE AUTO 1.18 K/mm3 (0.16-1.47); MONOCYTES PERCENT AUTO 8 % (4-13); Mean Corpuscular HGB 27.4 pg (26.0-34.0); Mean Corpuscular HGB Conc 32.5 g/dL (31.5-36.5); Mean Corpuscular Volume 84 fL (80-100); NEUTROPHILS ABSOLUTE AUTO 12.05 K/mm3 (1.96-9.15); NEUTROPHILS PERCENT AUTO 77 % (41-73); Platelet Count 409 K/mm3 (150-400); RDW Coefficient Variation 14.6 % (11.7-14.2); RDW Standard Deviation 45.5 fL (35.1-46.3); White Blood Cell Count 15.65 K/mm3 (4.00-11.30)
[2021-12-22 05:15] LABS: International Normalized Ratio 3.2; Prothrombin Time Results 31.1 Sec (9.7-11.5)
[2021-12-22 05:23] LABS: Albumin, Blood 2.4 g/dL (3.4-5.0); Anion Gap 7 mmol/L (6-16); Blood Urea Nitrogen 6 mg/dL (8-24); Bun/Creatinine Ratio 7.4 (12.0-20.0); CO2, Blood 25 mmol/L (21-32); Calcium, Blood 8.5 mg/dL (8.5-10.1); Chloride, Blood 109 mmol/L (98-108); Creatinine, Blood 0.81 mg/dL (0.60-1.20); Glomerular Filtration Rate 111 (60-); Glucose, Blood 101 mg/dL (70-99); Magnesium, Blood 2.1 mg/dL (1.6-2.4); Phosphorus, Blood 2.8 mg/dL (2.5-4.9); Potassium, Blood 3.4 mmol/L (3.5-5.5); Sodium, Blood 141 mmol/L (136-145)
[2021-12-22] MEDS ORDERED: AMOCLA875 PO (09:57)
[2021-12-22] MEDS ORDERED: ONDA4 PO (09:58)
[2021-12-22] MEDS ORDERED: PANT40 PO (09:58)
--- NOTE | 2021-12-22 14:10 | NUR ---
DISCHARGE SUMMARY PT WAS TRANSPORTED BY WHEELCHAIR TO PRIVATE VEHICLE. ALL PERSONAL BELONGINGS AND DISCHARGE INSTRUCTIONS WERE IN THE PT'S POSSESSION AT THE TIME OF TRANSPORT. ALL QUESTIONS AND CONCERNS WERE ADDRESSED PRIOR TO DISCHARGE. PT STATED AN UNDERSTANDING OF DISCHARGE INSTRUCTIONS.
== END 2021-12-22 13:14 | disposition home or self-care (01) | DRG 872 ==
LOC: ER 21:50 → PCU 12-17 05:43
PROVIDERS: Emergency Medicine; Family Medicine; Internal Medicine; Pharmacist; Student in an Organized Health Care Education/Training Program; ADMIT Internal Medicine
PROC: 30233L1 Transfusion of Nonautologous Fresh Plasma into Peripheral Vein, Percutaneous Approach (ICD-10-PCS; principal; 2021-12-17)
PROC: 30233K1 Transfusion of Nonautologous Frozen Plasma into Peripheral Vein, Percutaneous Approach (ICD-10-PCS; 2021-12-17)
PROC: 3E03329 Introduction of Other Anti-infective into Peripheral Vein, Percutaneous Approach (ICD-10-PCS; 2021-12-17)
DX: A41.9 Sepsis, unspecified organism (principal); K81.0 Acute cholecystitis; R65.20 Severe sepsis without septic shock; I71.9 Aortic aneurysm of unspecified site, without rupture; F17.200 Nicotine dependence, unspecified, uncomplicated; K43.9 Ventral hernia without obstruction or gangrene; D69.6 Thrombocytopenia, unspecified; K29.80 Duodenitis without bleeding; F64.9 Gender identity disorder, unspecified; E66.9 Obesity, unspecified; Z90.49 Acquired absence of other specified parts of digestive tract; Z95.2 Presence of prosthetic heart valve; Z88.6 Allergy status to analgesic agent; Z88.5 Allergy status to narcotic agent; Z79.01 Long term (current) use of anticoagulants; Z98.890 Other specified postprocedural states; Z71.3 Dietary counseling and surveillance; Z68.32 Body mass index [BMI] 32.0-32.9, adult
CPT/HCPCS: 36415; 49405; 74177; 76705; 80053; 80069; 83605; 83690; 83735; 83880; 84100; 85025; 85520; 85610; 85730; 87040; 87070; 87075; 87077; 87186; 87205; 94762; 96365-59; 96375; 96376; 99285-25; A9270; C9113; J1170; J1644; J1650; J2405; J2543; J2765; J3010; J3430; J3475; J7030; J7040; J7050; J7060; Q9967

== ENCOUNTER → 2022-04-07 | Outpatient (CLI) | payer OTHER ==
[~2022-04-07] MED LIST changes: +ACETAMINOPHEN500 MG PO; +AMOCLA875 PO; +ONDA4 PO
== END | disposition home or self-care (01) ==
LOC: LAB SHORT 11:15 → LAB 11:15
DX: L08.9 Local infection of the skin and subcutaneous tissue, unspecified (principal)
CPT/HCPCS: 87070; 87077; 87186; 87205

== ENCOUNTER 2022-10-08 08:14 | Emergency (ER) | payer OTHER ==
[~2022-10-08] VITALS: Ht 180.3 cm; Wt 120.2 kg
[2022-10-08 09:19] LABS: Source, Urine Clean Catch
[2022-10-08 09:25] LABS: Bilirubin, Urine Neg (Neg); Blood, Urine 2+ (Neg); Glucose Qualitative, Urine Neg (Neg); Ketones, Urine Neg (Neg); Leukocyte Esterase, Urine Neg (Neg); Nitrite, Urine Neg (Neg); Protein, Urine 1+ (Neg); Specific Gravity, Urine 1.025 (1.003-1.022); Urobilinogen, Urine NORM (Normal)
[2022-10-08 09:26] LABS: BASOPHILS ABSOLUTE AUTO 0.07 K/mm3 (0.00-0.23); BASOPHILS PERCENT AUTO 1 % (0-2); EOSINOPHILS ABSOLUTE AUTO 0.36 K/mm3 (0.00-0.68); EOSINOPHILS PERCENT AUTO 3 % (0-6); Hematocrit 44.9 % (37.0-53.0); Hemoglobin 14.6 g/dL (13.5-17.5); IMMATURE GRAN ABSOLUTE AUTO 0.07 K/mm3 (0.00-0.10); IMMATURE GRAN PERCENT AUTO 1 % (0-1); LYMPHOCYTES ABSOLUTE AUTO 1.76 K/mm3 (0.84-5.20); LYMPHOCYTES PERCENT AUTO 15 % (21-46); MONOCYTES PERCENT AUTO 7 % (4-13); Mean Corpuscular HGB 27.5 pg (26.0-34.0); Mean Corpuscular HGB Conc 32.5 g/dL (31.5-36.5); Mean Corpuscular Volume 85 fL (80-100); Mean Platelet Volume 8.8 fL (9.1-12.4); NEUTROPHILS ABSOLUTE AUTO 9.07 K/mm3 (1.96-9.15); NEUTROPHILS PERCENT AUTO 75 % (41-73); Platelet Count 374 K/mm3 (150-400); RDW Coefficient Variation 13.9 % (11.7-14.2); RDW Standard Deviation 42.9 fL (35.1-46.3); Red Blood Cell Count 5.31 M/mm3 (4.30-5.90); White Blood Cell Count 12.13 K/mm3 (4.00-11.30)
[2022-10-08 09:44] LABS: Appearance, Urine Hazy (Clear); Color, Urine Yellow (P-Yellow)
[2022-10-08 09:45] LABS: Mucus Light (0-Heavy)
[2022-10-08 09:46] LABS: Albumin, Blood 3.8 g/dL (3.4-5.0); Bilirubin, Total 0.2 mg/dL (0.1-1.0); Bun/Creatinine Ratio 9.2 (12.0-20.0); Calcium, Blood 8.8 mg/dL (8.5-10.1); Creatinine, Blood 1.09 mg/dL (0.60-1.20); Globulin, Blood 3.8 g/dL (2.2-4.0); Total Protein, Blood 7.6 g/dL (6.4-8.2)
[2022-10-08 09:47] LABS: Bacteria Rare /hpf; Calcium Oxalate Crystals Rare /hpf; Red Blood Cells, Urine 0-2 /hpf (0-2); Squamous Epithelial Cells Few /hpf (Few)
[2022-10-08 15:52] VITALS: BP 132/82
[2022-10-08] MEDS ORDERED: PANT40 PO (16:01)
== END 2022-10-08 16:04 | disposition home or self-care (01) ==
LOC: ER 08:14
PROVIDERS: Emergency Medicine
DX: K80.20 Calculus of gallbladder without cholecystitis without obstruction (principal); K42.9 Umbilical hernia without obstruction or gangrene; K43.9 Ventral hernia without obstruction or gangrene; F17.210 Nicotine dependence, cigarettes, uncomplicated; Z88.5 Allergy status to narcotic agent
CPT/HCPCS: 71045; 74177; 76705; 80053; 81001; 83690; 84484; 85025; 93005; 93010; 96374-59; 96375; 99284-25; J1885; J3010; J7030; Q9967

== ENCOUNTER → 2022-12-22 | Outpatient (CLI) | payer OTHER ==
[~2022-12-22] MED LIST changes: +METO10 PO; +PROM12.5S PR; +Robaxin750 MG PO
[2022-12-22 19:06] LABS: BASOPHILS ABSOLUTE AUTO 0.06 K/mm3 (0.00-0.23); BASOPHILS PERCENT AUTO 1 % (0-2); EOSINOPHILS ABSOLUTE AUTO 0.27 K/mm3 (0.00-0.68); EOSINOPHILS PERCENT AUTO 3 % (0-6); Hematocrit 45.3 % (37.0-53.0); Hemoglobin 14.9 g/dL (13.5-17.5); IMMATURE GRAN ABSOLUTE AUTO 0.03 K/mm3 (0.00-0.10); IMMATURE GRAN PERCENT AUTO 0 % (0-1); LYMPHOCYTES ABSOLUTE AUTO 1.88 K/mm3 (0.84-5.20); LYMPHOCYTES PERCENT AUTO 20 % (21-46); MONOCYTES ABSOLUTE AUTO 0.74 K/mm3 (0.16-1.47); MONOCYTES PERCENT AUTO 8 % (4-13); Mean Corpuscular HGB 27.7 pg (26.0-34.0); Mean Corpuscular HGB Conc 32.9 g/dL (31.5-36.5); Mean Corpuscular Volume 84 fL (80-100); Mean Platelet Volume 9.1 fL (9.1-12.4); NEUTROPHILS ABSOLUTE AUTO 6.22 K/mm3 (1.96-9.15); NEUTROPHILS PERCENT AUTO 68 % (41-73); Platelet Count 346 K/mm3 (150-400); RDW Coefficient Variation 14.4 % (11.7-14.2); RDW Standard Deviation 44.2 fL (35.1-46.3); Red Blood Cell Count 5.38 M/mm3 (4.30-5.90)
[2022-12-22 19:12] LABS: Alanine Aminotransfer (ALT/SGP 30 U/L (12-78); Albumin, Blood 4.2 g/dL (3.4-5.0); Alk Phos 61 U/L (50-136); Anion Gap 2 mmol/L (6-16); Aspartate Aminotrans (AST/SGOT 24 U/L (12-37); Bilirubin, Total 0.4 mg/dL (0.1-1.0); Blood Urea Nitrogen 12 mg/dL (8-24); Bun/Creatinine Ratio 10.9 (12.0-20.0); CHOL/HDL RATIO 6.5; CO2, Blood 28 mmol/L (21-32); Calcium, Blood 9.2 mg/dL (8.5-10.1); Chloride, Blood 109 mmol/L (98-108); Cholesterol 196 mg/dL (50-200); Globulin, Blood 4.1 g/dL (2.2-4.0); Glomerular Filtration Rate 84 (60-); Glucose, Blood 85 mg/dL (70-99); HDL Cholesterol 30 mg/dL (>39); LDL/HDL RATIO 3.7; Low Density Lipoprotein Chol 111 mg/dL (0-110); Potassium, Blood 4.4 mmol/L (3.5-5.5); Sodium, Blood 139 mmol/L (136-145); Total Protein, Blood 8.3 g/dL (6.4-8.2); Triglycerides 274 mg/dL (30-160); Very Low Density Lipoprot Chol 54 mg/dL (6-32)
[2022-12-22 19:19] LABS: Thyroid Stimulating Hormone 0.959 uIU/mL (0.360-4.800)
== END | disposition home or self-care (01) ==
LOC: LAB SHORT 17:17 → LAB 17:17
PROVIDERS: Student in an Organized Health Care Education/Training Program
DX: Z51.81 Encounter for therapeutic drug level monitoring (principal); Z79.899 Other long term (current) drug therapy
CPT/HCPCS: 80053; 80061; 83036; 84443; 85025

== ENCOUNTER → 2024-12-15 | Outpatient (CLI) | payer OTHER ==
[~2024-12-15] MED LIST changes: +BUPR100 PO; +ENOX100I SC
[2024-12-15 17:52] LABS: BASOPHILS ABSOLUTE AUTO 0.09 K/mm3 (0.00-0.23); BASOPHILS PERCENT AUTO 1 % (0-2); EOSINOPHILS ABSOLUTE AUTO 0.33 K/mm3 (0.00-0.68); EOSINOPHILS PERCENT AUTO 3 % (0-6); Hematocrit 47.1 % (37.0-53.0); Hemoglobin 15.4 g/dL (13.5-17.5); IMMATURE GRAN ABSOLUTE AUTO 0.05 K/mm3 (0.00-0.10); IMMATURE GRAN PERCENT AUTO 0 % (0-1); LYMPHOCYTES ABSOLUTE AUTO 2.04 K/mm3 (0.84-5.20); LYMPHOCYTES PERCENT AUTO 18 % (21-46); MONOCYTES ABSOLUTE AUTO 0.90 K/mm3 (0.16-1.47); MONOCYTES PERCENT AUTO 8 % (4-13); Mean Corpuscular HGB Conc 32.7 g/dL (31.5-36.5); Mean Corpuscular Volume 88 fL (80-100); NEUTROPHILS ABSOLUTE AUTO 8.07 K/mm3 (1.96-9.15); NEUTROPHILS PERCENT AUTO 70 % (41-73); NRBC ABSOLUTE 0.00 K/mm3 (0.00-0.02); NRBC Auto 0.0 /100 WBC (0.0-0.2); Platelet Count 377 K/mm3 (150-400); RDW Coefficient Variation 14.4 % (11.7-14.2); RDW Standard Deviation 46.5 fL (35.1-46.3)
[2024-12-15 17:58] LABS: Alanine Aminotransfer (ALT/SGP 34 U/L (12-78); Albumin, Blood 4.0 g/dL (3.4-5.0); Albumin/Globulin Ratio 1.2 (0.8-1.8); Anion Gap 7 mmol/L (3-11); Aspartate Aminotrans (AST/SGOT 17 U/L (12-37); Bilirubin, Total 0.2 mg/dL (0.1-1.0); Blood Urea Nitrogen 10 mg/dL (8-24); CHOL/HDL RATIO 5.4; CO2, Blood 24 mmol/L (21-32); Calcium, Blood 9.0 mg/dL (8.5-10.1); Chloride, Blood 111 mmol/L (98-108); Cholesterol 167 mg/dL (50-200); Creatinine, Blood 1.09 mg/dL (0.60-1.20); Globulin, Blood 3.4 g/dL (2.2-4.0); Glucose, Blood 98 mg/dL (70-99); HDL Cholesterol 31 mg/dL (>39); LDL/HDL RATIO 3.2; Low Density Lipoprotein Chol 100 mg/dL (0-110); Potassium, Blood 3.6 mmol/L (3.5-5.5); Sodium, Blood 138 mmol/L (136-145); Total Protein, Blood 7.4 g/dL (6.4-8.2); Triglycerides 178 mg/dL (30-160); Very Low Density Lipoprot Chol 35 mg/dL (6-32)
[2024-12-17 07:45] LABS: HIV 1,2 COMBO ANTIGEN/ANTIBODY Negative (Negative)
[2024-12-17 11:01] LABS: HEPATITIS C AB CIA INTERP Negative (Negative); HEPATITIS C ANTIBODY CIA INDEX <0.02 IV
== END ==
LOC: LAB SHORT 11:25 → LAB 11:25
DX: E66.3 Overweight (principal); Z11.4 Encounter for screening for human immunodeficiency virus [HIV]; Z11.59 Encounter for screening for other viral diseases
CPT/HCPCS: 80053; 80061; 85025; 86803; 87389